=== PATIENT | male | born 1975 | race Two or more races ===

== ENCOUNTER 2021-01-02 09:58 | Emergency (ER) | payer OTHER ==
[~2021-01-02] VITALS: Ht 175.3 cm; Wt 102.1 kg
[2021-01-02] MEDS ORDERED: ORPHENADRINE C100 MG PO (12:33)
[2021-01-02] MEDS ORDERED: KETO10TA2 PO (12:33)
== END 2021-01-02 12:44 | disposition home or self-care (01) ==
LOC: ER 09:58
DX: M75.32 Calcific tendinitis of left shoulder (principal); M25.512 Pain in left shoulder; R07.89 Other chest pain